=== PATIENT | male | born 1995 | race Two or more races ===

== ENCOUNTER 2023-03-10 04:55 | Emergency (ER) | payer MEDICAID, OTHER ==
[~2023-03-10] VITALS: Ht 165.1 cm; Wt 68.2 kg
[2023-03-10] MEDS ORDERED: FLUORESCEIN SOD OPTH TEST STRIP EACHEYE ONE (06:45)
[2023-03-10] MEDS ORDERED: ERY05OO OP (07:09)
[2023-03-10 07:22] VITALS: BP 132/84; PULSE 75; RESP 18; TEMP 97.8; O2SAT 95
== END 2023-03-10 07:24 | disposition home or self-care (01) ==
LOC: ER 04:55
DX: S05.01XA Injury of conjunctiva and corneal abrasion without foreign body, right eye, initial encounter (principal); S05.02XA Injury of conjunctiva and corneal abrasion without foreign body, left eye, initial encounter; Z88.2 Allergy status to sulfonamides; X58.XXXA Exposure to other specified factors, initial encounter; Y93.89 Activity, other specified; Y92.89 Other specified places as the place of occurrence of the external cause; Y99.8 Other external cause status